=== PATIENT | female | born 1995 | race Caucasian/White ===

== ENCOUNTER 2021-12-07 08:24 | Inpatient (IN) ==
[~2021-12-07 08:24] MED LIST: *HR* Nalbuphine 10 MG/ML AMPUL IV PRN; Famotidine 20 MG/2 ML VIAL IVP PRN; Metoclopramide 10 MG/2 ML VIAL IVP PRN; Naloxone 0.4 MG/ML INJ IVP PRN; Ondansetron 4 MG/2 ML VIAL IVP PRN
[2021-12-07 09:07] LABS: Basophils # 0.1 K/mcL (0.0-0.2); Basophils % 0.3 %; Eosinophils % 0.1 %; Hematocrit 36.3 % (35.3-44.9); Hemoglobin 12.1 g/dL (11.5-15.4); Immature Granulocytes % 0.6 % (0-4); Lymphocytes # 1.9 K/mcL (0.6-4.6); Mean Corpuscular HGB Conc 33.3 g/dL (31.6-35.5); Mean Corpuscular Hemoglobin 30.7 pg (28.0-33.3); Mean Corpuscular Volume 92.1 fL (83.0-100.0); Mean Platelet Volume 11.6 fL (9.4-12.4); Monocytes # 1.1 K/mcL (0.0-1.3); Neutrophils # 18.3 K/mcL (1.6-8.9); Platelet Count 274 K/mcL (140-400); Red Blood Count 3.94 M/mcL (3.82-4.97); Red Cell Distribution Width 13.2 % (11.5-14.5); White Blood Count 21.5 K/mcL (4.3-11.1)
[2021-12-07] MEDS: Ringers Solution, Lactated 1,000 ML IVC SCH ×3 (09:07→19:52)
[2021-12-07] MEDS: Clindamycin 900 MG/50 ML 900 MG/50 ML IV.SOLN IVPB SCH ×2 (09:15→17:20)
[2021-12-07 09:59] LABS: Influenza A PCR Negative (Negative); Influenza B PCR Negative (Negative); Resp. Syncytial Virus PCR Negative (Negative)
[2021-12-07 10:03] LABS: SARS-CoV-2 by PCR (In House) Negative (Negative)
[2021-12-07 12:43] LABS: Amphetamine Screen,Urine Negative ng/mL (Cutoff=1000); Barbiturate Screen,Urine Negative ng/mL (Cutoff=200); Benzodiazepines Screen,Urine Negative ng/mL (Cutoff=200); Cannabinoid Screen,Urine Positive ng/mL (Cutoff = 50); Cocaine Screen,Urine Negative ng/mL (Cutoff= 300); Opiate Screen,Urine Negative ng/mL (Cutoff=300); Phencyclidine Screen,Urine Negative ng/mL (Cutoff=25)
[2021-12-07] MEDS ORDERED: EPHEDrine 50 MG/ML VIAL IVP PRN (12:45)
[2021-12-07] MEDS: Epidural Premix (fent/bupiv) 110 ML EP SCH ×2 (13:08→19:53)
[2021-12-07] MEDS ORDERED: Oxytocin 20 units/ LR 1000 mL 20 UNIT/1,000 ML BAG IVC SCH (13:15)
[2021-12-08] MEDS: Clindamycin 900 MG/50 ML 900 MG/50 ML IV.SOLN IVPB SCH (03:15)
[2021-12-08] MEDS ORDERED: Ibuprofen 600 MG TABLET PO ONE (10:43)
[2021-12-08] MEDS ORDERED: *HR* OxyCODONE Immed Rel 5 MG TABLET PO PRN (14:12)
[2021-12-08] MEDS ORDERED: Lanolin 7 G OINT...G. TP PRN (14:12)
[2021-12-08] MEDS ORDERED: Benzocaine/Menthol 56 GM AEROSOL SPRAY TP PRN (14:12)
[2021-12-08] MEDS ORDERED: Ondansetron ODT 4 MG TAB.RAPDIS SL PRN (14:12)
[2021-12-08] MEDS ORDERED: Oxytocin 20 units/ LR 1000 mL 20 UNIT/1,000 ML BAG IVC SCH (14:12)
[2021-12-08] MEDS: Acetaminophen 325 MG TABLET PO SCH ×2 (14:29→20:05)
[2021-12-08] MEDS: Ibuprofen 600 MG TABLET PO SCH ×2 (14:34→17:23)
[2021-12-09] MEDS: Ibuprofen 600 MG TABLET PO SCH ×3 (02:22→11:00)
[2021-12-09] MEDS: Acetaminophen 325 MG TABLET PO SCH ×3 (02:23→11:00)
[2021-12-09 06:38] VITALS: BP 114/69; PULSE 70; TEMP 99; O2SAT 97
[2021-12-09] MEDS ORDERED: Prenatal Vit/FA 1 EACH TABLET PO SCH (09:00)
== END 2021-12-09 13:55 | disposition home or self-care (01) | DRG 560 ==
LOC: 1NENULAB → 1NENUOBS 12-08 13:36
PROVIDERS: ADMIT Advanced Practice Midwife; ATTEND Advanced Practice Midwife